=== PATIENT | female | born 2000 | race Caucasian/White ===

== ENCOUNTER 2024-07-06 19:28 | Emergency (ER) | payer OTHER, SELFPAY ==
[~2024-07-06] VITALS: Ht 157.5 cm; Wt 97.6 kg
[2024-07-06 19:32] VITALS: BP 130/89; TEMP 98.9; O2SAT 98
== END 2024-07-06 21:26 | disposition left against medical advice (07) ==
LOC: M ED 19:28
DX: Z53.21 Procedure and treatment not carried out due to patient leaving prior to being seen by health care provider (principal)